=== PATIENT | female | born 1995 | race Caucasian/White ===

== ENCOUNTER 2023-12-07 09:25 | Outpatient (CLI) | payer BC, SELFPAY ==
[2023-12-07 13:37] LABS: Cholesterol 199 mg/dL (0-200); HDL Direct 67 mg/dL; Triglycerides 40 mg/dL (<150)
[2023-12-07 13:48] LABS: LDL Cholesterol Direct 103 mg/dL
[2023-12-07 14:06] LABS: Thyroid Stimulating Hormone 0.945 uIU/mL (0.465-4.680)
== END 2023-12-07 09:26 | disposition home or self-care (01) ==
LOC: ANHGOSHLAB 09:27
PROVIDERS: PCP Family Medicine; Visit Provider Nurse Practitioner Family
DX: G25.0 Essential tremor (principal); K50.90 Crohn's disease, unspecified, without complications; M06.9 Rheumatoid arthritis, unspecified
CPT/HCPCS: 36415; 80061; 84443

== ENCOUNTER 2024-08-01 09:59 | Outpatient (CLI) | payer BC, SELFPAY ==
--- NOTE | ~2024-08-01 | XR_ITS ---
XR chest 2V Ordering provider: MICHELLE Blackburn History: 29 years Female with . R05.9 - Cough, unspecified . Comparison: October 17, 2017 FINDINGS: MEDIASTINUM: The cardiac silhouette is not enlarged. LUNGS: No infiltrates, effusions or pneumothorax. OTHER: No free air under the diaphragm. IMPRESSION: No acute cardiopulmonary pathology. Reviewed, dictated and finalized at location A.
== END 2024-08-01 10:00 | disposition home or self-care (01) ==
LOC: GOSHIMG 10:00
PROVIDERS: PCP Family Medicine; Visit Provider Nurse Practitioner Family
DX: R05.9 Cough, unspecified (principal)
CPT/HCPCS: 71046